=== PATIENT | male | born 1940 | race Caucasian/White ===

== ENCOUNTER 2023-01-13 12:20 | Inpatient (IN) ==
[2023-01-13] MEDS ORDERED: IPRATROPIUM/ALBUTEROL 3 ML AMPUL.NEB NEB ONE (12:48)
[2023-01-13] MEDS ORDERED: 0.9 % SODIUM CHLORIDE 1,000 ML IV ONE (12:48)
[2023-01-13] MEDS ORDERED: cefTRIAXone 1 GM VIAL IV ONE (12:55)
[2023-01-13] MEDS ORDERED: AZITHROMYCIN 500 MG in DEXTROSE 5% IN WATER 250 ML IV ONE (12:59)
--- NOTE | 2023-01-13 13:18 | Emergency Department Note ---
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 Patient is not on inhalers. He denies F/C/S. He complains of weakness. 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 He denies history of cardiac disease. Denies chest pain. He notes that his previous chemotherapies have caused some lung damage. The patient initially presented to [facility] care where he was noted to have a respiratory rate in the 30s to 40s with 88% saturations on room air. He is currently saturating 92% on room air, appears dyspneic, but states that this is his baseline and it is a "bad habit he developed" since his chemotherapies. Related Data Home Medications Medication Instructions Recorded Confirmed acetaminophen 500 mg tablet 1,000 mg PO QID PRN Pain 02/16/21 01/13/23 (Acetaminophen Extra Strength) docusate sodium 100 mg capsule 100 mg PO QDAY 02/16/21 01/13/23 polyethylene glycol 3350 17 gram 17 g PO BID 02/16/21 01/13/23 oral powder packet (Miralax) tamsulosin 0.4 mg capsule 0.4 mg PO QDAY 02/16/21 01/13/23 tramadol 50 mg tablet 50 mg PO Q6H PRN Pain 02/16/21 01/13/23 vit C 250 mg-vit E 90 mg-zinc 40 1 tab PO BID 02/16/21 01/13/23 mg-copper 1 [id number] capsule (PreserVision AREDS-2) Allergies Allergy/AdvReac Type Severity Reaction Status Date / Time penicillin G Allergy Severe Joint Verified 02/16/21 10:02 [From Bicillin L-A] Pain/ Joint Swelling adhesive Allergy Unknown Unknown Verified 02/16/21 10:02 Review of Systems ROS ROS Narrative: Narrative: All systems ED: reviewed and negative except as stated. PFSH Narrative Patient History Narrative: Narrative: Medical/Surgical/Family History All Active Problems (Updated 01/13/23 @ 14:29 by Dasia Shafer PA-C) Pneumonia (Acute) Hodgkins lymphoma (Acute) Hydronephrosis, left (Acute) Hyperlipidemia (Chronic) Sensorineural hearing loss, bilateral (Chronic) Non-Hodgkin lymphoma (Chronic) GERD (gastroesophageal reflux disease) (Chronic) Centriacinar emphysema (Chronic) COPD (chronic obstructive pulmonary disease) (Chronic) Verruca pedis (Chronic) Chronic sinusitis (Chronic) Hypertension (Chronic) Vitamin D deficiency (Chronic) B-cell lymphoma (Chronic) Chronic kidney disease (Chronic) Kidney abscess (Chronic) Medical History B-cell lymphoma Centriacinar emphysema Chronic kidney disease Chronic sinusitis COPD (chronic obstructive pulmonary disease) GERD (gastroesophageal reflux disease) Hyperlipidemia Hypertension Kidney abscess 70mm growth on left Kidney Non-Hodgkin lymphoma Sensorineural hearing loss, bilateral Verruca pedis Vitamin D deficiency Surgical History History of colonoscopy Family History Brother Hypertension Myocardial infarction Coronary artery disease Sister Depression Hyperlipidemia Thyroid disease Hypertension Ovarian cancer Mother Thyroid disease Social History Smoking Status: Former smoker Alcohol Intake Frequency: a few times a week Substance Use: does not use Exam Narrative Narrative: General: AOx3, NAD, nontoxic appearing. Pleasant and conversant. HEENT: PERRL, EOMI, normocephalic. Moist mucous membranes. Normal facies and normal dentition. Chest: Symmetric, no pain to palpation Respiratory: Right base crackles that are coarse. No wheezes. No respiratory distress. Appears tachypneic with labored breathing. Heart: Regular rate and rhythm, no murmurs/clicks/rubs. Abdomen: Non-tender, Non distended, normal bowel tones. No organomegaly. Extremities: Warm and well perfused. Trace pitting edema bilaterally.. DP 2+ bilaterally. No venous stasis. Neuro: No focal deficits. Cranial nerves II-XII grossly normal. Skin: Warm dry, no rashes or lesions, no cyanosis. Psych: Normal mood and affect Heme/Lymph: No abnormal bruising General Limitations: no limitations Course Course Course Narrative: 83-year-old male presents to the ER with complaints of shortness of breath and productive cough Reevaluation(s) Reevaluation #1: Patient is tachycardic, will obtain VBG, lactic acid, blood cultures, CBC with differential, renal panel Chest x-ray Check COVID and influenza swabs Time: 13:22 Reevaluation #2: Chest x-ray shows a right lower lobe patchy infiltrate. Establish IV and give IV ceftriaxone and azithromycin for community-acquired pneumonia, give 1L IV NS Lactic acid is 1.3 and pH is 7.47, CO2 22 and bicarbonate 21.3. COVID and influenza swabs are negative Reevaluation #3: White count is greater than 24,000. Creatinine is 1.8 up from baseline of 1.5. Remains tachycardic to 114 bpm, patient is moderate risk based on his curb 65 score Vital Signs Vital signs: Vital Signs Temperature 98.7 F 01/13/23 12:24 Pulse Rate 117 H 01/13/23 12:24 Respiratory Rate 19 01/13/23 12:24 Blood Pressure 106/59 01/13/23 12:24 Pulse Oximetry (%) 91 01/13/23 12:24 Oxygen Delivery Method Room Air 01/13/23 12:24 Temperature 98.7 F 01/13/23 12:24 Pulse Rate 110 H 01/13/23 14:01 Respiratory Rate 22 01/13/23 14:01 Blood Pressure 126/63 01/13/23 14:01 Pulse Oximetry (%) 95 01/13/23 14:01 Oxygen Delivery Method Room Air 01/13/23 12:46 MDM MDM Narrative Medical decision making narrative: Community-acquired pneumonia Acute on chronic renal insufficiency Acute dehydration Curb 65 score is 3, moderate risk. Patient remains tachycardic and quite weak. He does live quite a distance away and I think he would benefit from admission for IV antibiotics and fluid hydration. Blood cultures are pending. The patient is being given fluid hydration with 1 L IV normal saline. He was given 1 g of IV ceftriaxone and 500 mg of IV azithromycin here in the ER. Lab Data 01/13/23 13:09 Labs: Lab Results 01/13/23 01/13/23 01/13/23 Range/Units 13:09 13:09 13:12 WBC 24.5 H (4.5-11.0) K/mcL RBC 4.32 L (4.63-6.08) M/mcL Hgb 13.4 L (13.7-17.5) g/dL Hct 40.5 (40.1-51.0) % POC Hct (41-55) MCV 93.8 (80.0-100.0) fL MCH 31.0 (26.0-34.0) pg MCHC 33.1 (31.0-36.0) g/dL RDW 13.1 (11.5-14.5) % Plt Count 211 (140-440) K/mcL MPV 9.5 (8.8-12.5) fL Seg Neutrophils % 73 (38-78) % Band Neutrophils % 18 H (0-10) % Lymphocytes % 2 L (15-49) % Monocytes % (Manual) 7 (1-12) % Platelet Estimate Normal (Normal) RBC Morphology Normal (Normal) POC VBG pH 7.47 H (7.32-7.42) POC VBG pCO2 at Temp 29.1 L (41-51) POC VBG pO2 41 H (25-40) POC VBG HCO3 21.3 L (24-28) POC VBG Total CO2 22.0 L (25-29) POC Venous O2 Sat 80.0 H (40-70) POC VBG Base Excess -2.0 (-2-2) VBG Lactic Acid 1.8 (0.5-2) POC Sodium (133-145) POC Potassium (3.3-5.1) POC Chloride (96-108) POC Total CO2 (22-30) POC BUN (6-20) POC Creatinine (0.6-1.2) POC Glucose (70-105) POC WB Ioniz Calcium (1.16-1.32) NT-Pro-B Natriuret Pep 1886.0 H (<450.0) pg/mL POC Troponin I (0.00-0.08) 01/13/23 01/13/23 Range/Units 13:19 13:48 WBC (4.5-11.0) K/mcL RBC (4.63-6.08) M/mcL Hgb (13.7-17.5) g/dL Hct (40.1-51.0) % POC Hct 41.0 (41-55) MCV (80.0-100.0) fL MCH (26.0-34.0) pg MCHC (31.0-36.0) g/dL RDW (11.5-14.5) % Plt Count (140-440) K/mcL MPV (8.8-12.5) fL Seg Neutrophils % (38-78) % Band Neutrophils % (0-10) % Lymphocytes % (15-49) % Monocytes % (Manual) (1-12) % Platelet Estimate (Normal) RBC Morphology (Normal) POC VBG pH (7.32-7.42) POC VBG pCO2 at Temp (41-51) POC VBG pO2 (25-40) POC VBG HCO3 (24-28) POC VBG Total CO2 (25-29) POC Venous O2 Sat (40-70) POC VBG Base Excess (-2-2) VBG Lactic Acid (0.5-2) POC Sodium 137 (133-145) POC Potassium 3.9 (3.3-5.1) POC Chloride 103 (96-108) POC Total CO2 20.0 L (22-30) POC BUN 24 H (6-20) POC Creatinine 1.8 H (0.6-1.2) POC Glucose 117 H (70-105) POC WB Ioniz Calcium 1.15 L (1.16-1.32) NT-Pro-B Natriuret Pep (<450.0) pg/mL POC Troponin I 0.02 (0.00-0.08) Discharge Plan Patient/Caregiver Discharge Instructions Pt seen by [facility]/PA only: Yes Clinical Impression: Pneumonia Patient Disposition: Xfer As Inpt ([facility]) Follow up with: Jacky Flood DO [Primary Care Provider] - Prescriptions: No Action polyethylene glycol 3350 [Miralax] 17 gram Powder In Packet 17 g PO BID tramadol 50 mg Tablet 50 mg PO Q6H PRN (Reason: Pain) acetaminophen [Acetaminophen Extra Strength] 500 mg Tablet 1,000 mg PO QID PRN (Reason: Pain) tamsulosin 0.4 mg Capsule 0.4 mg PO QDAY docusate sodium 100 mg Capsule 100 mg PO QDAY PreserVision AREDS-2 250-90-40-1 mg Capsule 1 tab PO BID
[2023-01-13 13:23] LABS: POC Calcium, Ionized 1.15 (1.16-1.32); POC Creatinine 1.8 (0.6-1.2); POC Potassium 3.9 (3.3-5.1)
[2023-01-13 13:53] LABS: Hematocrit 40.5 % (40.1-51.0); Hemoglobin 13.4 g/dL (13.7-17.5); Mean Cell Volume 93.8 fL (80.0-100.0); Mean Corpuscular HGB Conc 33.1 g/dL (31.0-36.0); Mean Platelet Volume 9.5 fL (8.8-12.5); Platelet Count 211 K/mcL (140-440); RBC 4.32 M/mcL (4.63-6.08); Red Cell Distribution Width 13.1 % (11.5-14.5); WBC 24.5 K/mcL (4.5-11.0)
--- NOTE | 2023-01-13 14:05 | XRay Report ---
CLINICAL INFORMATION: Dyspnea COMPARISON: 08/11/2021 TECHNIQUE: PA and Lateral views FINDINGS: Right-sided Port-A-Cath tip overlies the SVC right atrial junction in stable satisfactory position. Cardiomediastinal silhouette and pulmonary vessels are unremarkable. Moderate infiltrate has developed in the right lower lung. Minimal infiltrate seen in the left base. No definite effusion. IMPRESSION: Moderate right lower lung infiltrate. Suspect pneumonia Interpreted and Authenticated by: Anders Moe 01/13/23
--- NOTE | 2023-01-13 14:25 | Internal Med History&Physical ---
HPI History of Present Illness Patient information: Note initiated : 01/13/23 at 2:16 pm Service Date, if different from initiated Date: [] Patient: Herb Gerardo 83 y/o M admitted on for Kasey LACY. Chief Complaint: [] History of present illness: 83-year-old male with history of Hodgkin's lymphoma status post chemotherapy's in remission, COPD, not oxygen dependent COPD non oxygen dependent, CKD, GERD presented with 7 days history of shortness of breath, productive cough, yellowish sputum, chills, feeling fatigued. Patient states he has bad lungs secondary to damage from chemotherapy for his lymphoma. He has COPD, but he is not on home oxygen or inhalers. He recently arrived from [place] where he chatterjee and is staying in [place] at his sisters. His sister has not been sick. He reports no history of CHF or CAD,, chest pain, denies any cardiac history. The patient initially presented to [facility] where he was noted to have a respiratory rate in the 30s to 40s with 88% saturations on room air. On presentation here patient was in sepsis on admission with tachycardia to 119 bpm, fever 99.5 F, sats 88% on room air. Chest x-ray showed right lower lobe patchy infiltrate. He had leukocytosis of 24,000. He has AURELIO with serum creatinine of 1.8 baseline appears to be around 1.4. BNP 1886. Troponin 0.02 negative. Lactic acid is 1.3, pH 7.47, CO2 22 and bicarb 21.3 patient will be started on IV ceftriaxone and azithromycin for community-acquired pneumonia. Review of systems 14 point review of system was completed. Patient reports cough, sputum production, shortness of breath, feeling fatigued. No chest pain, no palpitations No nausea, vomiting, diarrhea Alert, denies any focal deficits Denies depression or anxiety Physical examination General: AOx3, NAD, nontoxic appearing. Pleasant and conversant. HEENT: PERRL, EOMI, normocephalic. Moist mucous membranes. Normal facies and normal dentition. Chest: Symmetric, no pain to palpation Respiratory: Right base crackles that are coarse. No wheezes. No respiratory distress. Appears tachypneic with labored breathing. Heart: Regular rate and rhythm, no murmurs/clicks/rubs. Abdomen: Non-tender, Non distended, normal bowel tones. No organomegaly. Extremities: Warm and well perfused. Trace pitting edema bilaterally.. DP 2+ bilaterally. No venous stasis. Neuro: No focal deficits. Cranial nerves II-XII grossly normal. Skin: Warm dry, no rashes or lesions, no cyanosis. Psych: Normal mood and affect Heme/Lymph: No abnormal bruising Assessment and plan Sepsis presented with tachycardia 114, tachypnea, respiratory rate 44, leukocytosis of 24,000 and pneumonia Right lower lobe community-acquired pneumonia Chest x-ray with right lower lobe patchy opacity. We will start patient on IV ceftriaxone azithromycin, nebulization therapy, pulmonary toileting. Follow sputum culture and blood culture COPD exacerbation Will give DuoNebs, budesonide, pulmonary toileting Acute hypoxic respiratory failure Secondary to above, wean oxygen as tolerated Acute kidney injury on chronic kidney disease Likely prerenal, patient appears somewhat dehydrated. Will give IV fluids and repeat History of Hodgkin lymphoma In remission, not on chemotherapy GERD Stable DVT prophylaxis With Lovenox CODE STATUS DNR/DNI Admit to [facility] Total time taken 75 minutes PFSH PFSH All Active Problems (Updated 01/13/23 @ 14:29 by Dasia Shafer PA-C) Pneumonia (Acute) Hodgkins lymphoma (Acute) Hydronephrosis, left (Acute) Hyperlipidemia (Chronic) Sensorineural hearing loss, bilateral (Chronic) Non-Hodgkin lymphoma (Chronic) GERD (gastroesophageal reflux disease) (Chronic) Centriacinar emphysema (Chronic) COPD (chronic obstructive pulmonary disease) (Chronic) Verruca pedis (Chronic) Chronic sinusitis (Chronic) Hypertension (Chronic) Vitamin D deficiency (Chronic) B-cell lymphoma (Chronic) Chronic kidney disease (Chronic) Kidney abscess (Chronic) Medical History B-cell lymphoma Centriacinar emphysema Chronic kidney disease Chronic sinusitis COPD (chronic obstructive pulmonary disease) GERD (gastroesophageal reflux disease) Hyperlipidemia Hypertension Kidney abscess 70mm growth on left Kidney Non-Hodgkin lymphoma Sensorineural hearing loss, bilateral Verruca pedis Vitamin D deficiency Surgical History History of colonoscopy Family History Brother Hypertension Myocardial infarction Coronary artery disease Sister Depression Hyperlipidemia Thyroid disease Hypertension Ovarian cancer Mother Thyroid disease Social History smoking status: Former smoker pack-years: 66 alcohol intake frequency: a few times a week substance use type: does not use MEDS/ALLERGIES Home Medications and Allergies Home Medications Medication Instructions Recorded Confirmed Type acetaminophen 500 mg tablet 1,000 mg PO QID PRN Pain 02/16/21 01/13/23 History (Acetaminophen Extra Strength) docusate sodium 100 mg capsule 100 mg PO QDAY 02/16/21 01/13/23 History polyethylene glycol 3350 17 gram 17 g PO BID 02/16/21 01/13/23 History oral powder packet (Miralax) tamsulosin 0.4 mg capsule 0.4 mg PO QDAY 02/16/21 01/13/23 History tramadol 50 mg tablet 50 mg PO Q6H PRN Pain 02/16/21 01/13/23 History vit C 250 mg-vit E 90 mg-zinc 40 1 tab PO BID 02/16/21 01/13/23 History mg-copper 1 [id number] capsule (PreserVision AREDS-2) Allergies Allergy/AdvReac Type Severity Reaction Status Date / Time penicillin G Allergy Severe Joint Verified 02/16/21 10:02 [From Bicillin L-A] Pain/ Joint Swelling adhesive Allergy Unknown Unknown Verified 02/16/21 10:02 EXAM Constitutional Vitals: Temp Pulse Resp BP Pulse Ox O2 Del Method 98.7 F 108 H 17 105/68 93 Room Air 01/13/23 12:24 01/13/23 13:02 01/13/23 13:02 01/13/23 13:02 01/13/23 13:02 01/13/23 12:46 DATA Data Completed and Pending Labs: Labs from last 24 hours 01/13/23 01/13/23 01/13/23 13:48 13:19 13:12 WBC RBC Hgb Hct POC Hct 41.0 MCV MCH MCHC RDW Plt Count MPV Platelet Estimate RBC Morphology POC VBG pH 7.47 H POC VBG pCO2 at Temp 29.1 L POC VBG pO2 41 H POC VBG HCO3 21.3 L POC VBG Total CO2 22.0 L POC Venous O2 Sat 80.0 H POC VBG Base Excess -2.0 VBG Lactic Acid 1.8 POC Sodium 137 POC Potassium 3.9 POC Chloride 103 POC Total CO2 20.0 L POC BUN 24 H POC Creatinine 1.8 H POC Glucose 117 H POC WB Ioniz Calcium 1.15 L NT-Pro-B Natriuret Pep POC Troponin I 0.02 01/13/23 01/13/23 13:09 13:09 WBC 24.5 H RBC 4.32 L Hgb 13.4 L Hct 40.5 POC Hct MCV 93.8 MCH 31.0 MCHC 33.1 RDW 13.1 Plt Count 211 MPV 9.5 Platelet Estimate Pending RBC Morphology Pending POC VBG pH POC VBG pCO2 at Temp POC VBG pO2 POC VBG HCO3 POC VBG Total CO2 POC Venous O2 Sat POC VBG Base Excess VBG Lactic Acid POC Sodium POC Potassium POC Chloride POC Total CO2 POC BUN POC Creatinine POC Glucose POC WB Ioniz Calcium NT-Pro-B Natriuret Pep 1886.0 H POC Troponin I A/P Time Spent With Patient Time: Total time spent is greater than 50% in coordination of care (as documented) at patient's floor/unit and/or counseling patient:
[2023-01-13 14:30] LABS: Band Neutrophils % 18 % (0-10); Lymphocytes % 2 % (15-49); Monocytes % (Manual) 7 % (1-12); Platelet Estimate NORMAL (Normal); RBC Morphology NORMAL (Normal); Segmented Neutrophils % 73 % (38-78)
[2023-01-13] MEDS ORDERED: ACETAMINOPHEN 325 MG TABLET PO PRN (16:27)
[2023-01-13] MEDS ORDERED: ONDANSETRON 4 MG/2 ML VIAL IV PRN (16:27)
[2023-01-13] MEDS ORDERED: traMADol 50 MG TABLET PO PRN (16:30)
[2023-01-13] MEDS: IPRATROPIUM/ALBUTEROL 3 ML AMPUL.NEB NEB SCH (18:47)
[2023-01-13] MEDS: BUDESONIDE 0.5 MG/2 ML AMPUL.NEB NEB SCH ×2 (18:47→19:53)
[2023-01-13 20:01] LABS: Appearance,Urine HAZY (Clear); Bilirubin,Urine Negative (Negative); Color,Urine YELLOW; Culture Indicated,Urine No; Glucose,Urine (UA) Negative (Negative); Ketones,Urine Negative (Negative); Leukocyte Esterase,Urine Negative /uL (Negative); Mucus,Urine FEW /hpf; Nitrate,Urine Negative (Negative); Protein,Urine 30 mg/dL (Negative); Specific Gravity,Urine 1.015 (1.000-1.035); Urine Blood 0.03 mg/dL (Negative); Urine RBC 0 /hpf (0-3); Urine Squamous Epithelial Cell 0 /hpf (0-4); Urine WBC 1 /hpf (0-4); Urobilinogen,Urine Negative
[2023-01-13] MEDS: methylPREDNISolone SOD SUCC 40 MG/ML VIAL IV SCH (20:33)
[2023-01-13] MEDS: VIT C E ZN COPPR LUTEIN ZEAXAN PO SCH (20:43)
[2023-01-13] MEDS: SENNOSIDES 1 TABLET PO SCH (20:43)
[2023-01-13] MEDS: DOCUSATE SODIUM 100 MG CAPSULE PO SCH (20:43)
[2023-01-13] MEDS: 0.9 % SODIUM CHLORIDE 10 ML SYRINGE IV SCH (20:48)
[2023-01-14] MEDS: IPRATROPIUM/ALBUTEROL 3 ML AMPUL.NEB NEB SCH ×4 (01:21→18:58)
[2023-01-14] MEDS: methylPREDNISolone SOD SUCC 40 MG/ML VIAL IV SCH ×3 (05:02→22:15)
[2023-01-14] MEDS: 0.9 % SODIUM CHLORIDE 10 ML SYRINGE IV SCH ×3 (05:02→13:21)
[2023-01-14 06:03] LABS: Basophils # (Auto) 0.04 K/mcL (0.00-0.30); Basophils % (Auto) 0.2 % (0.0-2.0); Eosinophils # (Auto) 0 K/mcL (0.00-0.70); Eosinophils % (Auto) 0 % (0.0-7.0); Hematocrit 39.6 % (40.1-51.0); Hemoglobin 13.1 g/dL (13.7-17.5); Lymphocytes # (Auto) 0.69 K/mcL (1.50-4.80); Lymphocytes % (Auto) 3.6 % (15.5-49.0); Mean Cell Volume 95.4 fL (80.0-100.0); Mean Corpuscular HGB Conc 33.1 g/dL (31.0-36.0); Mean Platelet Volume 9.9 fL (8.8-12.5); Monocytes # (Auto) 0.76 K/mcL (0.10-0.90); Neutrophils % (Auto) 91.1 % (38.0-78.0); Platelet Count 196 K/mcL (140-440); RBC 4.15 M/mcL (4.63-6.08); Red Cell Distribution Width 13.2 % (11.5-14.5); WBC 18.9 K/mcL (4.5-11.0)
[2023-01-14 06:48] LABS: ALT/SGPT 12 U/L (<40); AST/SGOT 13 U/L (<40); Albumin/Globulin Ratio 0.9 (1.0-2.3); Alkaline Phosphatase 84 U/L (39-117); Bilirubin,Total 0.5 mg/dL (0.1-1.0); Blood Urea Nitrogen 30 mg/dL (8-23); Calcium 9.1 mg/dL (8.6-10.4); Carbon Dioxide 20 mmol/L (22-30); Chloride 104 mmol/L (96-108); Globulin 3.2 gm/dL (2.2-3.7); Glomerular Filtration Rate 42; Glucose 192 mg/dL (70-105)
[2023-01-14] MEDS: BUDESONIDE 0.5 MG/2 ML AMPUL.NEB NEB SCH ×3 (08:02→23:26)
[2023-01-14] MEDS: ENOXAPARIN 40 MG/0.4 ML SYRINGE SQ SCH (08:31)
[2023-01-14] MEDS: TAMSULOSIN 0.4 MG CAPSULE PO SCH (08:31)
[2023-01-14] MEDS: DOCUSATE SODIUM 100 MG CAPSULE PO SCH ×2 (08:31→21:23)
[2023-01-14] MEDS: cefTRIAXone 1 GM VIAL IV SCH (08:31)
[2023-01-14] MEDS: VIT C E ZN COPPR LUTEIN ZEAXAN PO SCH ×2 (08:32→21:22)
[2023-01-14] MEDS ORDERED: ENOXAPARIN 40 MG/0.4 ML SYRINGE SQ SCH (09:00)
[2023-01-14] MEDS: AZITHROMYCIN 500 MG in DEXTROSE 5% IN WATER 250 ML IV SCH (10:17)
[2023-01-14] MEDS ORDERED: cefTRIAXone 1 GM in DEXTROSE 5% IN WATER 50 ML IV SCH (14:30)
--- NOTE | 2023-01-14 17:11 | Internal Med Progress Note ---
SUBJECTIVE Subjective Patient information: Note initiated : 01/14/23 at 5:04 pm Service Date, if different from initiated Date: [] Patient: Herb Gerardo 83 y/o M admitted on 01/13/23 for SOB, V. Chief Complaint: [] Additional PMFSH (Level 3 Only): Hospital course: 83-year-old male with history of Hodgkin's lymphoma status post chemotherapy's in remission, COPD, not oxygen dependent COPD non oxygen dependent, CKD, GERD presented with 7 days history of shortness of breath, productive cough, yellowish sputum, chills, feeling fatigued. Patient states he has bad lungs secondary to damage from chemotherapy for his lymphoma. He has COPD, but he is not on home oxygen or inhalers. 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 His sister has not been sick. He reports no history of CHF or CAD,, chest pain, denies any cardiac history. The patient initially presented to [facility] where he was noted to have a respiratory rate in the 30s to 40s with 88% saturations on room air. On presentation here patient was in sepsis on admission with tachycardia to 119 bpm, fever 99.5 F, sats 88% on room air. Chest x-ray showed right lower lobe patchy infiltrate. He had leukocytosis of 24,000. He has AURELIO with serum creatinine of 1.8 baseline appears to be around 1.4. BNP 1886. Troponin 0.02 negative. Lactic acid is 1.3, pH 7.47, CO2 22 and bicarb 21.3 patient will be started on IV ceftriaxone and azithromycin for community-acquired pneumonia. 01/14 last night patient went into respiratory distress, ABGs obtained showed hypoxemia, his oxygen requirements were increased to 5 L nasal cannula oxygen. This morning patient reported his breathing was better, he was on 5 L oxygen. WBC count improved to 18,000 from 21,000 yesterday. Serum creatinine 1.5. Glucose down to 192. Review of systems 14 point review of system was completed. Patient reports less cough, sputum production, shortness of breath, still feels weak No chest pain, no palpitations No nausea, vomiting, diarrhea Alert, denies any focal deficits Denies depression or anxiety Physical examination General: Alert and oriented, sitting up, in no acute distress HEENT: PERRL, EOMI, normocephalic. Moist mucous membranes. Normal facies and normal dentition. Chest: Symmetric, no pain to palpation Respiratory: Right basal crackles more than left, on 5 L nasal cannula oxygen, no respiratory distress Heart: Regular rate and rhythm, no murmurs/clicks/rubs. Abdomen: Non-tender, Non distended, normal bowel tones. No organomegaly. Extremities: Warm and well perfused. Trace pitting edema bilaterally.. DP 2+ bilaterally. No venous stasis. Neuro: No focal deficits. Cranial nerves II-XII grossly normal. Skin: Warm dry, no rashes or lesions, no cyanosis. Psych: Normal mood and affect Heme/Lymph: No abnormal bruising Assessment and plan Sepsis presented with tachycardia 114, tachypnea, respiratory rate 44, leukocytosis of 24,000 and pneumonia Right lower lobe community-acquired pneumonia Chest x-ray with right lower lobe patchy opacity. Continue IV ceftriaxone azithromycin, nebulization therapy, pulmonary toileting. Follow sputum culture and blood culture Supplemental oxygen as needed and wean as tolerated COPD exacerbation DuoNebs, budesonide, pulmonary toileting Acute hypoxic respiratory failure Secondary to above, wean oxygen as tolerated Acute kidney injury on chronic kidney disease Prerenal. Serum creatinine 1.5 now back to baseline History of Hodgkin lymphoma In remission, not on chemotherapy GERD Stable DVT prophylaxis With Lovenox CODE STATUS DNR/DNI Total time taken 50 minutes Constitutional Vitals: Vital Signs Temp Pulse Resp BP Pulse Ox O2 Del Method O2 Flow Rate 97.3 F 98 H 16 116/65 95 Nasal Cannula 1.5 01/14/23 15:45 01/14/23 15:45 01/14/23 15:45 01/14/23 15:45 01/14/23 15:45 01/14/23 15:45 01/14/23 15:45 Period Temp Pulse Resp BP Sys/Avila Pulse Ox O2 Del Method O2 Flow Rate Last 24 Hr 97.3 F-100.0 F 75-115 16-36 116-149/58-81 93-98 Nasal Cannula- Room Air 1.5-5 Intake and Output 01/14/23 01/14/23 01/14/23 03:59 11:59 19:59 Intake Total 2970 420 Output Total 750 875 600 Balance -750 2095 -180 Weight 92.034 kg Patient Weight 01/15/23 03:59 Weight 92.034 kg Intake & Output: Intake & Output 01/14/23 01/14/23 01/14/23 03:59 11:59 19:59 Intake Total 2970 420 Output Total 750 875 600 Balance -750 2095 -180 Weight 92.034 kg Intake: IV 250 Zithromax 500 mg In Dextrose 5% 250 in Water 250 ml @ 250 mls/hr IV Q24H [facility] Rx#:[id number] Oral 2720 420 Output: Void Amount 750 875 600 Other: Meal Breakfast Lunch Percent of Meal Consumed 100% 100% Feeding Ability Assist with Tray Set Up Assist with Tray Set Up Urine Appearance Clear Clear Clear Urine Color Yellow Bright Yellow Yellow Urine Odor Normal Normal Normal Stool Size Small Moderate Small Stool Color Brown Brown Brown Stool Consistency Soft Normal for Patient Normal for Patient Formed Formed Formed # Bowel Movements 1 OBJ DATA Labs 01/14/23 05:17 01/14/23 05:17 Labs: Abnormal Lab Results 01/14/23 01/14/23 01/13/23 05:17 05:17 22:31 WBC 18.9 H RBC 4.15 L Hgb 13.1 L Hct 39.6 L Immature Gran % (Auto) 1.1 H Neut % (Auto) 91.1 H Lymph % (Auto) 3.6 L Lymph # (Auto) 0.69 L Band Neutrophils % Lymphocytes % Immature Gran # 0.20 H Absolute Neutrophils 17.25 H POC pH POC pCO2 33.9 L POC pO2 POC HCO3 21.3 L POC ABG Base Excess -3.0 L ABG Lactic Acid POC VBG pH POC VBG pCO2 at Temp POC VBG pO2 POC VBG HCO3 POC VBG Total CO2 POC Venous O2 Sat Hgb O2 Saturation Carbon Dioxide 20 L POC Total CO2 22.0 L POC BUN BUN 30 H Creatinine 1.5 H POC Creatinine Glucose 192 H POC Glucose POC WB Ioniz Calcium NT-Pro-B Natriuret Pep Albumin 3.0 L Albumin/Globulin Ratio 0.9 L Urine Appearance Urine Protein Urine Mucus 01/13/23 01/13/23 01/13/23 20:10 16:38 13:19 WBC RBC Hgb Hct Immature Gran % (Auto) Neut % (Auto) Lymph % (Auto) Lymph # (Auto) Band Neutrophils % Lymphocytes % Immature Gran # Absolute Neutrophils POC pH 7.48 H POC pCO2 28.9 L POC pO2 62 L POC HCO3 21.6 L POC ABG Base Excess ABG Lactic Acid 2.7 H POC VBG pH POC VBG pCO2 at Temp POC VBG pO2 POC VBG HCO3 POC VBG Total CO2 POC Venous O2 Sat Hgb O2 Saturation 93.0 L Carbon Dioxide POC Total CO2 22.0 L 20.0 L POC BUN 24 H BUN Creatinine POC Creatinine 1.8 H Glucose POC Glucose 117 H POC WB Ioniz Calcium 1.15 L NT-Pro-B Natriuret Pep Albumin Albumin/Globulin Ratio Urine Appearance Hazy A Urine Protein 30 A Urine Mucus Few A 01/13/23 01/13/23 01/13/23 13:12 13:09 13:09 WBC 24.5 H RBC 4.32 L Hgb 13.4 L Hct Immature Gran % (Auto) Neut % (Auto) Lymph % (Auto) Lymph # (Auto) Band Neutrophils % 18 H Lymphocytes % 2 L Immature Gran # Absolute Neutrophils POC pH POC pCO2 POC pO2 POC HCO3 POC ABG Base Excess ABG Lactic Acid POC VBG pH 7.47 H POC VBG pCO2 at Temp 29.1 L POC VBG pO2 41 H POC VBG HCO3 21.3 L POC VBG Total CO2 22.0 L POC Venous O2 Sat 80.0 H Hgb O2 Saturation Carbon Dioxide POC Total CO2 POC BUN BUN Creatinine POC Creatinine Glucose POC Glucose POC WB Ioniz Calcium NT-Pro-B Natriuret Pep 1886.0 H Albumin Albumin/Globulin Ratio Urine Appearance Urine Protein Urine Mucus Meds: Medications Acetaminophen (Acetaminophen 325 Mg Tablet) 650 mg PO Q6HP PRN; Protocol PRN Reason: Per Pain Protocol/Fever > 101 Last Admin: 01/13/23 21:40 Dose: 650 mg Albuterol/Ipratropium (Ipratropium/Albuterol 3 Ml Ampul.Neb) 3 ml NEB Q6HRT [facility] Last Admin: 01/14/23 13:10 Dose: 3 ml Budesonide (Budesonide 0.5 Mg/2 Ml Ampul.Neb) 0.5 mg NEB Q12 [facility] Last Admin: 01/14/23 08:02 Dose: 0.5 mg Ceftriaxone Sodium (Ceftriaxone 1 Gm Vial) 1 gm IV Q24H [facility] Last Admin: 01/14/23 08:31 Dose: 1 gm Docusate Sodium (Docusate Sodium 100 Mg Capsule) 100 mg PO BID [facility] Last Admin: 01/14/23 08:31 Dose: 100 mg Enoxaparin Sodium (Enoxaparin 40 Mg/0.4 Ml Syringe) 40 mg SQ DAILY [facility] Last Admin: 01/14/23 08:31 Dose: 40 mg Azithromycin 500 mg/ Dextrose 250 mls @ 250 mls/hr IV Q24H [facility]; Protocol Stop: 01/17/23 10:59 Last Infusion: 01/14/23 11:22 Dose: Infused Methylprednisolone Sodium Succinate (Methylprednisolone Sod Succ 40 Mg/Ml Vial) 40 mg IV Q8 [facility] Last Admin: 01/14/23 13:21 Dose: 40 mg Ondansetron HCl (Ondansetron 4 Mg/2 Ml Vial) 4 mg IV Q6HP PRN PRN Reason: Nausea And Vomiting Vit C,E-Zn-Coppr- Lutein-Zeaxan [ Preservision Areds] Cap 1 dose PO BID [facility] Last Admin: 01/14/23 08:32 Dose: Not Given Senna (Sennosides 1 Tablet) 2 tab PO HS [facility] Last Admin: 01/13/23 20:43 Dose: Not Given Sodium Chloride (0.9 % Sodium Chloride 10 Ml Syringe) 10 ml IV Q8 [facility] Last Admin: 01/14/23 13:21 Dose: 10 ml Tamsulosin HCl (Tamsulosin 0.4 Mg Capsule) 0.4 mg PO QDAY [facility] Last Admin: 01/14/23 08:31 Dose: 0.4 mg Tramadol HCl (Tramadol 50 Mg Tablet) 50 mg PO Q6HP PRN PRN Reason: Pain Trazodone HCl (Trazodone Hcl 50 Mg Tablet) 25 mg PO HSP PRN PRN Reason: Insomnia A/P Time Spent With Patient Time: Total time spent is greater than 50% in coordination of care (as documented) at patient's floor/unit and/or counseling patient: QUALITY Stroke Symptom Onset Unknown: No VTE Deep Vein Thrombosis/Pulmonary Embolism Present on Admission: No
[2023-01-14] MEDS: SENNOSIDES 1 TABLET PO SCH (21:23)
[2023-01-15] MEDS: 0.9 % SODIUM CHLORIDE 10 ML SYRINGE IV SCH ×4 (00:22→21:10)
[2023-01-15] MEDS: IPRATROPIUM/ALBUTEROL 3 ML AMPUL.NEB NEB SCH ×4 (01:17→19:08)
[2023-01-15] MEDS ORDERED: LORazepam 2 MG/ML VIAL IM PRN (01:28)
[2023-01-15] MEDS ORDERED: LORazepam 2 MG/ML VIAL IV PRN (01:30)
[2023-01-15] MEDS ORDERED: LORazepam 2 MG/ML VIAL ONE (01:35)
[2023-01-15] MEDS: traZODone HCL 50 MG TABLET PO PRN (01:44)
[2023-01-15] MEDS: methylPREDNISolone SOD SUCC 40 MG/ML VIAL IV SCH ×3 (06:01→21:10)
[2023-01-15 06:37] LABS: Basophils # (Auto) 0.06 K/mcL (0.00-0.30); Basophils % (Auto) 0.3 % (0.0-2.0); Eosinophils # (Auto) 0.16 K/mcL (0.00-0.70); Eosinophils % (Auto) 0.8 % (0.0-7.0); Hemoglobin 12.9 g/dL (13.7-17.5); Lymphocytes # (Auto) 0.73 K/mcL (1.50-4.80); Lymphocytes % (Auto) 3.7 % (15.5-49.0); Mean Cell Volume 93.5 fL (80.0-100.0); Mean Corpuscular HGB Conc 32.3 g/dL (31.0-36.0); Monocytes % (Auto) 4.6 % (1.0-12.0); Neutrophils % (Auto) 88.3 % (38.0-78.0); Platelet Count 236 K/mcL (140-440); RBC 4.28 M/mcL (4.63-6.08); Red Cell Distribution Width 12.9 % (11.5-14.5); WBC 19.6 K/mcL (4.5-11.0)
[2023-01-15] MEDS: BUDESONIDE 0.5 MG/2 ML AMPUL.NEB NEB SCH ×3 (06:44→19:08)
[2023-01-15 07:34] LABS: ALT/SGPT 24 U/L (<40); AST/SGOT 28 U/L (<40); Albumin 3.2 gm/dL (3.2-5.2); Alkaline Phosphatase 103 U/L (39-117); Bilirubin,Total 0.3 mg/dL (0.1-1.0); Blood Urea Nitrogen 40 mg/dL (8-23); Calcium 9.3 mg/dL (8.6-10.4); Carbon Dioxide 20 mmol/L (22-30); Chloride 102 mmol/L (96-108); Globulin 3.1 gm/dL (2.2-3.7); Glomerular Filtration Rate 42; Glucose 226 mg/dL (70-105)
[2023-01-15] MEDS: VIT C E ZN COPPR LUTEIN ZEAXAN PO SCH ×2 (09:17→21:10)
[2023-01-15] MEDS: DOCUSATE SODIUM 100 MG CAPSULE PO SCH ×2 (09:17→20:59)
[2023-01-15] MEDS: TAMSULOSIN 0.4 MG CAPSULE PO SCH (09:17)
[2023-01-15] MEDS: AZITHROMYCIN 500 MG in DEXTROSE 5% IN WATER 250 ML IV SCH (09:17)
[2023-01-15] MEDS: ENOXAPARIN 40 MG/0.4 ML SYRINGE SQ SCH (09:17)
[2023-01-15] MEDS: cefTRIAXone 1 GM VIAL IV SCH (09:20)
--- NOTE | 2023-01-15 13:15 | Internal Med Progress Note ---
SUBJECTIVE Subjective Patient information: Note initiated : 01/15/23 at 1:10 pm Service Date, if different from initiated Date: [] Patient: Herb Gerardo 83 y/o M admitted on 01/13/23 for SOB, V. Chief Complaint: [] Additional PMFSH (Level 3 Only): Hospital course: 83-year-old male with history of Hodgkin's lymphoma status post chemotherapy's in remission, COPD, not oxygen dependent COPD non oxygen dependent, CKD, GERD presented with 7 days history of shortness of breath, productive cough, yellowish sputum, chills, feeling fatigued. Patient states he has bad lungs secondary to damage from chemotherapy for his lymphoma. He has COPD, but he is not on home oxygen or inhalers. 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 His sister has not been sick. He reports no history of CHF or CAD,, chest pain, denies any cardiac history. The patient initially presented to [facility] where he was noted to have a respiratory rate in the 30s to 40s with 88% saturations on room air. On presentation here patient was in sepsis on admission with tachycardia to 119 bpm, fever 99.5 F, sats 88% on room air. Chest x-ray showed right lower lobe patchy infiltrate. He had leukocytosis of 24,000. He has AURELIO with serum creatinine of 1.8 baseline appears to be around 1.4. BNP 1886. Troponin 0.02 negative. Lactic acid is 1.3, pH 7.47, CO2 22 and bicarb 21.3 patient will be started on IV ceftriaxone and azithromycin for community-acquired pneumonia. 01/14 last night patient went into respiratory distress, ABGs obtained showed hypoxemia, his oxygen requirements were increased to 5 L nasal cannula oxygen. This morning patient reported his breathing was better, he was on 5 L oxygen. WBC count improved to 18,000 from 21,000 yesterday. Serum creatinine 1.5. Glucose down to 192. 5/13. Leukocytosis of 19,000 up from 18,000 yesterday. Patient has history of lymphoma and baseline chronic leukocytosis per patient. However procalcitonin obtained is significantly high at 3.99 today. Oxygen requirements improved to 2.5 L nasal cannula oxygen this morning. He is doing incentive spirometry and pulling up to 3000 mL. Sputum culture final report is still pending. Blood cultures negative to date Review of systems 14 point review of system was completed. Patient reports less cough, sputum production, shortness of breath, still feels weak No chest pain, no palpitations No nausea, vomiting, diarrhea Alert, denies any focal deficits Denies depression or anxiety Physical examination General: Alert sitting up in bedside chair in no acute distress HEENT: PERRL, EOMI, normocephalic. Moist mucous membranes. Normal facies and normal dentition. Chest: Symmetric, no pain to palpation Respiratory: Right basal crackles more than left, no tachypnea, on 2.5 L nasal cannula oxygen Heart: Regular rate and rhythm, no murmurs/clicks/rubs. Abdomen: Non-tender, Non distended, normal bowel tones. No organomegaly. Extremities: Warm and well perfused. Trace pitting edema bilaterally.. DP 2+ bilaterally. No venous stasis. Neuro: No focal deficits. Cranial nerves II-XII grossly normal. Skin: Warm dry, no rashes or lesions, no cyanosis. Psych: Normal mood and affect Heme/Lymph: No abnormal bruising Assessment and plan Sepsis presented with tachycardia 114, tachypnea, respiratory rate 44, leukocytosis of 24,000 and pneumonia Right lower lobe community-acquired pneumonia Chest x-ray with right lower lobe patchy opacity. Continue IV ceftriaxone azithromycin, nebulization therapy, pulmonary toileting. Procalcitonin obtained is significantly elevated at 3.99. Follow sputum and blood culture Supplemental oxygen as needed and wean as tolerated COPD exacerbation DuoNebs, budesonide, pulmonary toileting Acute hypoxic respiratory failure Secondary to above, wean oxygen as tolerated Acute kidney injury on chronic kidney disease Prerenal. Serum creatinine 1.5 now back to baseline History of Hodgkin lymphoma In remission, not on chemotherapy GERD Stable DVT prophylaxis With Lovenox CODE STATUS DNR/DNI Total time taken 50 minutes Constitutional Vitals: Vital Signs Temp Pulse Resp BP Pulse Ox O2 Del Method O2 Flow Rate 98.1 F 89 20 122/85 93 Room Air 2 01/15/23 12:00 01/15/23 12:00 01/15/23 12:00 01/15/23 12:00 01/15/23 12:00 01/15/23 12:00 01/15/23 07:09 Period Temp Pulse Resp BP Sys/Avila Pulse Ox O2 Del Method O2 Flow Rate Last 24 Hr 97.3 F-98.4 F 89-111 16-24 114-138/47-85 93-96 Nasal Cannula- Room Air 1.5-2.5 Intake and Output 01/15/23 01/15/23 01/15/23 03:59 11:59 19:59 Intake Total 475 Output Total 500 Balance -25 Weight 89.857 kg Intake & Output: Intake & Output 01/15/23 01/15/23 01/15/23 03:59 11:59 19:59 Intake Total 475 Output Total 500 Balance -25 Weight 89.857 kg Intake: IV 250 Zithromax 500 mg In Dextrose 5% 250 in Water 250 ml @ 250 mls/hr IV Q24H [facility] Rx#:[id number] Oral 225 Output: Void Amount 500 Other: Urine Appearance Clear Urine Color Pale Urine Odor Normal Stool Color Brown OBJ DATA Labs 01/15/23 05:18 01/15/23 05:18 Labs: Abnormal Lab Results 01/15/23 01/15/23 01/15/23 05:18 05:18 05:18 WBC 19.6 H RBC 4.28 L Hgb 12.9 L Hct 40.0 L Immature Gran % (Auto) 2.3 H Neut % (Auto) 88.3 H Lymph % (Auto) 3.7 L Lymph # (Auto) 0.73 L Band Neutrophils % Lymphocytes % Immature Gran # 0.46 H Absolute Neutrophils 17.28 H POC pH POC pCO2 POC pO2 POC HCO3 POC ABG Base Excess ABG Lactic Acid POC VBG pH POC VBG pCO2 at Temp POC VBG pO2 POC VBG HCO3 POC VBG Total CO2 POC Venous O2 Sat Hgb O2 Saturation Carbon Dioxide 20 L POC Total CO2 POC BUN BUN 40 H Creatinine 1.5 H POC Creatinine Glucose 226 H POC Glucose POC WB Ioniz Calcium NT-Pro-B Natriuret Pep Albumin Albumin/Globulin Ratio Procalcitonin 3.99 H Urine Appearance Urine Protein Urine Mucus 01/14/23 01/14/23 01/13/23 05:17 05:17 22:31 WBC 18.9 H RBC 4.15 L Hgb 13.1 L Hct 39.6 L Immature Gran % (Auto) 1.1 H Neut % (Auto) 91.1 H Lymph % (Auto) 3.6 L Lymph # (Auto) 0.69 L Band Neutrophils % Lymphocytes % Immature Gran # 0.20 H Absolute Neutrophils 17.25 H POC pH POC pCO2 33.9 L POC pO2 POC HCO3 21.3 L POC ABG Base Excess -3.0 L ABG Lactic Acid POC VBG pH POC VBG pCO2 at Temp POC VBG pO2 POC VBG HCO3 POC VBG Total CO2 POC Venous O2 Sat Hgb O2 Saturation Carbon Dioxide 20 L POC Total CO2 22.0 L POC BUN BUN 30 H Creatinine 1.5 H POC Creatinine Glucose 192 H POC Glucose POC WB Ioniz Calcium NT-Pro-B Natriuret Pep Albumin 3.0 L Albumin/Globulin Ratio 0.9 L Procalcitonin Urine Appearance Urine Protein Urine Mucus 01/13/23 01/13/23 01/13/23 20:10 16:38 13:19 WBC RBC Hgb Hct Immature Gran % (Auto) Neut % (Auto) Lymph % (Auto) Lymph # (Auto) Band Neutrophils % Lymphocytes % Immature Gran # Absolute Neutrophils POC pH 7.48 H POC pCO2 28.9 L POC pO2 62 L POC HCO3 21.6 L POC ABG Base Excess ABG Lactic Acid 2.7 H POC VBG pH POC VBG pCO2 at Temp POC VBG pO2 POC VBG HCO3 POC VBG Total CO2 POC Venous O2 Sat Hgb O2 Saturation 93.0 L Carbon Dioxide POC Total CO2 22.0 L 20.0 L POC BUN 24 H BUN Creatinine POC Creatinine 1.8 H Glucose POC Glucose 117 H POC WB Ioniz Calcium 1.15 L NT-Pro-B Natriuret Pep Albumin Albumin/Globulin Ratio Procalcitonin Urine Appearance Hazy A Urine Protein 30 A Urine Mucus Few A 01/13/23 01/13/23 01/13/23 13:12 13:09 13:09 WBC 24.5 H RBC 4.32 L Hgb 13.4 L Hct Immature Gran % (Auto) Neut % (Auto) Lymph % (Auto) Lymph # (Auto) Band Neutrophils % 18 H Lymphocytes % 2 L Immature Gran # Absolute Neutrophils POC pH POC pCO2 POC pO2 POC HCO3 POC ABG Base Excess ABG Lactic Acid POC VBG pH 7.47 H POC VBG pCO2 at Temp 29.1 L POC VBG pO2 41 H POC VBG HCO3 21.3 L POC VBG Total CO2 22.0 L POC Venous O2 Sat 80.0 H Hgb O2 Saturation Carbon Dioxide POC Total CO2 POC BUN BUN Creatinine POC Creatinine Glucose POC Glucose POC WB Ioniz Calcium NT-Pro-B Natriuret Pep 1886.0 H Albumin Albumin/Globulin Ratio Procalcitonin Urine Appearance Urine Protein Urine Mucus Meds: Medications Acetaminophen (Acetaminophen 325 Mg Tablet) 650 mg PO Q6HP PRN; Protocol PRN Reason: Per Pain Protocol/Fever > 101 Last Admin: 01/13/23 21:40 Dose: 650 mg Albuterol/Ipratropium (Ipratropium/Albuterol 3 Ml Ampul.Neb) 3 ml NEB Q6HRT [facility] Last Admin: 01/15/23 06:45 Dose: 3 ml Budesonide (Budesonide 0.5 Mg/2 Ml Ampul.Neb) 0.5 mg NEB Q12 [facility] Last Admin: 01/15/23 09:30 Dose: Not Given Ceftriaxone Sodium (Ceftriaxone 1 Gm Vial) 1 gm IV Q24H [facility] Last Admin: 01/15/23 09:20 Dose: 1 gm Docusate Sodium (Docusate Sodium 100 Mg Capsule) 100 mg PO BID [facility] Last Admin: 01/15/23 09:17 Dose: 100 mg Enoxaparin Sodium (Enoxaparin 40 Mg/0.4 Ml Syringe) 40 mg SQ DAILY [facility] Last Admin: 01/15/23 09:17 Dose: 40 mg Azithromycin 500 mg/ Dextrose 250 mls @ 250 mls/hr IV Q24H [facility]; Protocol Stop: 01/17/23 10:59 Last Infusion: 01/15/23 10:45 Dose: Infused Lorazepam (Lorazepam 2 Mg/Ml Vial) 0 mg IV UD PRN; Protocol PRN Reason: Alcohol Withdrawal/Assess CIWA Methylprednisolone Sodium Succinate (Methylprednisolone Sod Succ 40 Mg/Ml Vial) 40 mg IV Q8 [facility] Last Admin: 01/15/23 06:01 Dose: 40 mg Ondansetron HCl (Ondansetron 4 Mg/2 Ml Vial) 4 mg IV Q6HP PRN PRN Reason: Nausea And Vomiting Vit C,E-Zn-Coppr- Lutein-Zeaxan [ Preservision Areds] Cap 1 dose PO BID [facility] Last Admin: 01/15/23 09:17 Dose: 1 dose Senna (Sennosides 1 Tablet) 2 tab PO HS [facility] Last Admin: 01/14/23 21:23 Dose: 2 tab Sodium Chloride (0.9 % Sodium Chloride 10 Ml Syringe) 10 ml IV Q8 [facility] Last Admin: 01/15/23 06:01 Dose: 10 ml Tamsulosin HCl (Tamsulosin 0.4 Mg Capsule) 0.4 mg PO QDAY [facility] Last Admin: 01/15/23 09:17 Dose: 0.4 mg Tramadol HCl (Tramadol 50 Mg Tablet) 50 mg PO Q6HP PRN PRN Reason: Pain Last Admin: 01/15/23 03:32 Dose: 50 mg Trazodone HCl (Trazodone Hcl 50 Mg Tablet) 25 mg PO HSP PRN PRN Reason: Insomnia Last Admin: 01/15/23 01:44 Dose: 25 mg A/P Time Spent With Patient Time: Total time spent is greater than 50% in coordination of care (as documented) at patient's floor/unit and/or counseling patient: QUALITY Stroke Symptom Onset Unknown: No VTE Deep Vein Thrombosis/Pulmonary Embolism Present on Admission: No
[2023-01-15] MEDS: SENNOSIDES 1 TABLET PO SCH (20:59)
[2023-01-16] MEDS: traZODone HCL 50 MG TABLET PO PRN (00:51)
[2023-01-16] MEDS: IPRATROPIUM/ALBUTEROL 3 ML AMPUL.NEB NEB SCH ×3 (00:51→12:26)
[2023-01-16] MEDS: 0.9 % SODIUM CHLORIDE 10 ML SYRINGE IV SCH (05:19)
[2023-01-16] MEDS: methylPREDNISolone SOD SUCC 40 MG/ML VIAL IV SCH (05:20)
[2023-01-16] MEDS: BUDESONIDE 0.5 MG/2 ML AMPUL.NEB NEB SCH (06:15)
[2023-01-16 06:34] LABS: Basophils # (Auto) 0.01 K/mcL (0.00-0.30); Basophils % (Auto) 0 % (0.0-2.0); Eosinophils # (Auto) 0.13 K/mcL (0.00-0.70); Eosinophils % (Auto) 0.6 % (0.0-7.0); Hematocrit 37.6 % (40.1-51.0); Hemoglobin 13.1 g/dL (13.7-17.5); Lymphocytes % (Auto) 4.2 % (15.5-49.0); Mean Cell Volume 89.3 fL (80.0-100.0); Mean Corpuscular HGB Conc 34.8 g/dL (31.0-36.0); Mean Platelet Volume 10.1 fL (8.8-12.5); Monocytes # (Auto) 0.99 K/mcL (0.10-0.90); Monocytes % (Auto) 4.7 % (1.0-12.0); Neutrophils % (Auto) 84.6 % (38.0-78.0); Platelet Count 271 K/mcL (140-440); RBC 4.21 M/mcL (4.63-6.08); Red Cell Distribution Width 12.8 % (11.5-14.5); WBC 21.2 K/mcL (4.5-11.0)
[2023-01-16 06:44] LABS: ALT/SGPT 32 U/L (<40); AST/SGOT 23 U/L (<40); Albumin 3.2 gm/dL (3.2-5.2); Albumin/Globulin Ratio 1.1 (1.0-2.3); Alkaline Phosphatase 96 U/L (39-117); Bilirubin,Total 0.2 mg/dL (0.1-1.0); Blood Urea Nitrogen 47 mg/dL (8-23); Calcium 9.2 mg/dL (8.6-10.4); Carbon Dioxide 22 mmol/L (22-30); Chloride 103 mmol/L (96-108); Globulin 2.9 gm/dL (2.2-3.7); Glomerular Filtration Rate 42; Glucose 216 mg/dL (70-105)
[2023-01-16] MEDS: TAMSULOSIN 0.4 MG CAPSULE PO SCH (09:58)
[2023-01-16] MEDS: DOCUSATE SODIUM 100 MG CAPSULE PO SCH (09:58)
[2023-01-16] MEDS: ENOXAPARIN 40 MG/0.4 ML SYRINGE SQ SCH (09:59)
[2023-01-16] MEDS: VIT C E ZN COPPR LUTEIN ZEAXAN PO SCH (09:59)
[2023-01-16] MEDS: cefTRIAXone 1 GM VIAL IV SCH (10:11)
[2023-01-16] MEDS: AZITHROMYCIN 500 MG in DEXTROSE 5% IN WATER 250 ML IV SCH (10:11)
--- NOTE | 2023-01-16 11:13 | Discharge Summary ---
Discharge Provider Provider IMPORTANT FOLLOW-UP INFORMATION FOR PCP: Patient information: Note initiated : 01/16/23 at 11:10 am Service Date, if different from initiated Date: [] Patient: Herb Gerardo 83 y/o M admitted on 01/13/23 for SOB, V. Chief Complaint: [] Date of admission: 01/13/23 16:20 Discharge date: 01/16/23 Primary care physician: Jacky Flood Consults: 01/13/23 Consult to Physician [CONS] Stat Comment: Consulting Provider: Danyel Lynne Reason For Exam: Physician to Consult COURSE Hospital Course Hospital course: Hospital course: 83-year-old male with history of Hodgkin's lymphoma status post chemotherapy's in remission, COPD, not oxygen dependent COPD non oxygen dependent, CKD, GERD presented with 7 days history of shortness of breath, productive cough, yellowish sputum, chills, feeling fatigued. Patient states he has bad lungs secondary to damage from chemotherapy for his lymphoma. He has COPD, but he is not on home oxygen or inhalers. 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 His sister has not been sick. He reports no history of CHF or CAD,, chest pain, denies any cardiac history. The patient initially presented to [facility] care where he was noted to have a respiratory rate in the 30s to 40s with 88% saturations on room air. On presentation here patient was in sepsis on admission with tachycardia to 119 bpm, fever 99.5 F, sats 88% on room air. Chest x-ray showed right lower lobe patchy infiltrate. He had leukocytosis of 24,000. He has AURELIO with serum creatinine of 1.8 baseline appears to be around 1.4. BNP 1886. Troponin 0.02 negative. Lactic acid is 1.3, pH 7.47, CO2 22 and bicarb 21.3 patient will be started on IV ceftriaxone and azithromycin for community-acquired pneumonia. 01/14 last night patient went into respiratory distress, ABGs obtained showed hypoxemia, his oxygen requirements were increased to 5 L nasal cannula oxygen. This morning patient reported his breathing was better, he was on 5 L oxygen. WBC count improved to 18,000 from 21,000 yesterday. Serum creatinine 1.5. Glucose down to 192. 5/13. Leukocytosis of 19,000 up from 18,000 yesterday. Patient has history of lymphoma and baseline chronic leukocytosis per patient. However procalcitonin obtained is significantly high at 3.99 today. Oxygen requirements improved to 2.5 L nasal cannula oxygen this morning. He is doing incentive spirometry and pulling up to 3000 mL. Sputum culture final report is still pending. Blood cultures negative to date 01/16. Patient is feeling back to normal. Echocardiogram on 01/10 with EF 45-50%, grade 1 diastolic dysfunction, trace mitral and tricuspid regurgitation. He has been weaned off oxygen and now satting mid 90s on room air. He ambulated in the hallway without any issues. He is afebrile. Procalcitonin is trending down nicely from 3.9 yesterday to 2.3 today. Leukocytosis of 20,000 is likely reactive to steroids versus underlying lymphoma. LDH has been ordered. Patient reports he follows up with his oncologist every 3 months. Sputum culture preliminary result is showing gram-negative bacilli. Blood cultures negative to date. Will transition to p.o. azithromycin and cefdinir to complete 5 to 7-day course. Discharge diagnosis Sepsis Presented with tachycardia 114, tachypnea, respiratory rate 44, leukocytosis of 24,000 and pneumonia Right lower lobe community-acquired pneumonia Chest x-ray with right lower lobe patchy opacity.Received IV ceftriaxone azithromycin, nebulization therapy, pulmonary toileting. He has been weaned off oxygen and now satting mid 90s on room air. He ambulated in the hallway without any issues. He is afebrile. Procalcitonin is trending down nicely from 3.9 yesterday to 2.3 today. Leukocytosis is likely secondary to steroids or underlying lymphoma. Sputum culture preliminary result is showing gram-negative bacilli. Blood cultures negative to date. Repeat chest x-ray 01/16 showed improved right lower lobe opacity. Will transition to p.o. azithromycin and cefdinir to complete 5 to 7-day course. COPD exacerbation Managed with steroids, DuoNebs, budesonide, pulmonary toileting Acute hypoxic respiratory failure Secondary to above, resolved Acute kidney injury on chronic kidney disease Prerenal. Serum creatinine 1.5 now back to baseline History of Hodgkin lymphoma In remission, not on chemotherapy. He follows up with oncology every 3 months GERD Stable DVT prophylaxis With Lovenox CODE STATUS DNR/DNI Physical examination General: Alert sitting up in bedside chair in no acute distress HEENT: PERRL, EOMI, normocephalic. Moist mucous membranes. Normal facies and normal dentition. Chest: Symmetric, no pain to palpation Respiratory: Faint right basal crackles, minimal left basal crackles. No rhonchi or wheezing, satting well on room air, no tachypnea or respiratory distress Heart: Regular rate and rhythm, no murmurs/clicks/rubs. Abdomen: Non-tender, Non distended, normal bowel tones. No organomegaly. Extremities: Warm and well perfused. Trace pitting edema bilaterally.. DP 2+ bilaterally. No venous stasis. Neuro: No focal deficits. Cranial nerves II-XII grossly normal. Skin: Warm dry, no rashes or lesions, no cyanosis. Psych: Normal mood and affect Heme/Lymph: No abnormal bruising Discharge diagnosis: Sepsis, pneumonia, COPD exacerbation, respiratory failure, lymphoma Time Spent with Patient Time attestation: Total time spent providing and/or coordinating discharge services: Time spent: Greater than 30 minutes EXAM Constitutional Vitals: Temp Pulse Resp BP Pulse Ox O2 Del Method O2 Flow Rate 97.2 F 96 H 20 167/89 94 Room Air 1 01/16/23 07:23 01/16/23 07:23 01/16/23 07:23 01/16/23 07:23 01/16/23 07:23 01/16/23 07:23 01/16/23 04:00 Discharge Data Data Completed and Pending Labs on day of discharge: Labs from last 24 hours 01/16/23 01/16/23 01/16/23 05:18 05:18 05:18 WBC 21.2 H RBC 4.21 L Hgb 13.1 L Hct 37.6 L MCV 89.3 MCH 31.1 MCHC 34.8 RDW 12.8 Plt Count 271 MPV 10.1 Immature Gran % (Auto) 5.9 H Neut % (Auto) 84.6 H Lymph % (Auto) 4.2 L [place] % (Auto) 4.7 Eos % (Auto) 0.6 Baso % (Auto) 0 Lymph # (Auto) 0.90 L [place] # (Auto) 0.99 H Eos # (Auto) 0.13 Baso # (Auto) 0.01 Immature Gran # 1.26 H Absolute Neutrophils 17.92 H Sodium 138 Potassium 4.1 Chloride 103 Carbon Dioxide 22 Anion Gap 13.0 BUN 47 H Creatinine 1.5 H GFR Calculation 42 Glucose 216 H Calcium 9.2 Total Bilirubin 0.2 AST 23 ALT 32 Alkaline Phosphatase 96 Total Protein 6.1 Albumin 3.2 Globulin 2.9 Albumin/Globulin Ratio 1.1 Procalcitonin 2.35 H Preliminary micro results at discharge 01/13/23 15:13 Gram Stain - Preliminary Sputum source - Induced Sputum Culture - Preliminary Gram negative bacillus 01/13/23 13:14 Blood Culture - Preliminary Blood 01/13/23 13:09 Blood Culture - Preliminary Blood Discharge Plan Patient/Caregiver Discharge Instructions Activity: increase activity as tolerated Diet: Cardiac Instructions: Bacterial Pneumonia (DC) Prescriptions: New azithromycin 500 mg tablet 500 mg PO QDAY 2 Days Qty: 2 0RF Rx Instructions: start on day 2 of therapy cefdinir 300 mg capsule 300 mg PO BID Qty: 8 0RF omeprazole 40 mg capsule,delayed release(DR/EC) 40 mg PO QDAY Qty: 30 0RF Continued polyethylene glycol 3350 [Miralax] 17 gram Powder In Packet 17 g PO BIDP PRN (Reason: Constipation) tramadol 50 mg Tablet 50 mg PO Q6HP PRN (Reason: Pain) acetaminophen [Acetaminophen Extra Strength] 500 mg Tablet 1,000 mg PO QID PRN (Reason: Pain) tamsulosin 0.4 mg Capsule 0.4 mg PO QDAY docusate sodium 100 mg Capsule 100 mg PO QDAY PreserVision AREDS-2 250-90-40-1 mg Capsule 1 tab PO BID Follow Up Plan Follow up with: Jacky Flood DO [Primary Care Provider] - Patient Disposition: Home, Self-Care I certify that the patient requires SNF services: No Overall status at discharge: patient is back to baseline Discharge Orders: Discharge Order (Routine); Ordered 01/16/23 Ordered By: Danyel LOPEZ VTE Deep Vein Thrombosis/Pulmonary Embolism Present on Admission: No
[2023-01-16 11:29] LABS: Lactate Dehydrogenase 208 U/L (135-225)
--- NOTE | 2023-01-16 12:56 | XRay Report ---
CLINICAL INFORMATION: Pneumonia follow up COMPARISON: 01/13/[address] plain film and chest CT from 04/10/2021 FINDINGS: Heart size, mediastinum and pulmonary vessels are normal. Right Port-A-Cath is stable satisfactory position. Right lower lobe infiltrate has markedly improved with a small patchy residual. Moderate underlying COPD noted. No effusions IMPRESSION: Marked improvement in right lower lobe infiltrate with small patchy residual Moderate COPD Interpreted and Authenticated by: Anders Moe 01/16/23
== END 2023-01-16 13:53 | disposition home or self-care (01) | DRG 871 ==
LOC: ED 12:20 → MEDSUR 16:20
PROVIDERS: ADMIT Internal Medicine; ATTEND Internal Medicine